=== PATIENT | female | born 1985 | race Caucasian/White ===

== ENCOUNTER 2019-02-18 15:45 | Emergency (ER) | payer OTHER ==
[2019-02-18 21:01] LABS: Urine Appearance Clear; Urine Bilirubin Negative (Negative); Urine Blood Negative (Negative); Urine Color Yellow; Urine Glucose Negative (Negative); Urine Ketones 1+ (Negative); Urine Nitrite Negative (Negative); Urine Protein Negative (Negative); Urine Specific Gravity 1.021 (1.010-1.030); Urine Urobilinogen Negative (Negative)
--- NOTE | 2019-02-18 21:05 | ED ---
Back Pain - HPI Summary HPI Summary: 33-year-old female presents with back pain for the past 6 months. She states over the past week she's had increasing back pain. She has chronic pain and numbness and tingling down left leg occasionally. She denies any urinary symptoms. No saddle anesthesia. No loss of bowel or bladder. Does not use IV drugs. She's been having fevers and chills for past 4 days. She also had a cough for past couple weeks and it is sometimes productive. No sinus congestion. No chest pain or shortness of breath. She states the pain radiates to her flanks. She states it feels like her back is swollen. she is able to ambulate. States she does not want anything for pain. has a provider that has been following up about her back. She has an MRI scheduled for next week. Just had an MRI a month ago. - History of Current Complaint Chief Complaint: EDBackInjuryPain Stated Complaint: BACK PAIN/FLANKPAIN/ACHE IN LEGS/CHILLS/ PER PT Time Seen by Provider: 02/18/19 20:32 Hx Last Menstrual Period: BEGINNING DECEMBER Pain Intensity: 9 - Allergies/Home Medications Allergies/Adverse Reactions: Allergies Allergy/AdvReac Type Severity Reaction Status Date / Time No Known Allergies Allergy Verified 02/18/19 15:54 Home Medications: Home Medications Ibuprofen [Advil] 600 mg PO TID PRN 02/18/19 [History Confirmed 02/18/19] PMH/Surg Hx/FS Hx/Imm Hx Endocrine/Hematology History: Denies: Hx Diabetes, Hx Thyroid Disease Cardiovascular History: Denies: Hx Hypertension Respiratory History: Denies: Hx Asthma, Hx Chronic Obstructive Pulmonary Disease (COPD) GI History: Denies: Hx Ulcer Infectious Disease History: No Infectious Disease History: Denies: Hx Clostridium Difficile, Hx Hepatitis, Hx Human Immunodeficiency Virus (HIV), Hx of Known/Suspected MRSA, Hx Shingles, Hx Tuberculosis, Hx Known/ Suspected VRE, Hx Known/Suspected VRSA, History Other Infectious Disease, Traveled Outside the [place] in Last 30 Days - Family History Known Family History: Positive: None, Unknown - Social History Alcohol Use: Occasionally Substance Use Type: Reports: None Smoking Status (MU): Light Every Day Tobacco Smoker Type: Cigarettes Amount Used/How Often: 1/2 PPD Length of Time of Smoking/Using Tobacco: 20 years Have You Smoked in the Last Year: Yes Review of Systems Negative: Fever Negative: Chest Pain Positive: Cough. Negative: Shortness Of Breath Positive: flank pain. Negative: dysuria Positive: Myalgia - back pain All Other Systems Reviewed And Are Negative: Yes Physical Exam Triage Information Reviewed: Yes Vital Signs On Initial Exam: Initial Vitals Temp Pulse Resp BP Pulse Ox 98.1 F 82 14 129/93 98 02/18/19 15:54 02/18/19 15:54 02/18/19 15:54 02/18/19 15:54 02/18/19 15:54 Vital Signs Reviewed: Yes Appearance: Positive: Well-Appearing Skin: Positive: Warm, Dry Head/Face: Positive: Normal Head/Face Inspection Eyes: Positive: Normal, Conjunctiva Clear ENT: Positive: Pharynx normal Respiratory/Lung Sounds: Positive: Clear to Auscultation, Breath Sounds Present Cardiovascular: Positive: Normal, RRR Abdomen Description: Positive: Nontender, Soft, CVA Tenderness (R), CVA Tenderness (L) Bowel Sounds: Positive: Present Musculoskeletal: Positive: Strength/ROM Intact - back, Other - tenderness lower back, pos SLR left, sensation grossly intact Neurological: Positive: Normal, Reflexes Intact - patella, Normal Gait Psychiatric: Positive: Normal Diagnostics - Vital Signs Vital Signs Temp Pulse Resp BP Pulse Ox 02/18/19 20:05 100.0 F 92 16 116/88 98 02/18/19 17:53 98.5 F 97 14 120/98 99 02/18/19 15:54 98.1 F 82 14 129/93 98 - Laboratory Lab Results: Lab Results 02/18/19 Range/Units 20:48 Urine Color Yellow Urine Appearance Clear Urine pH 5.0 (5-9) Ur Specific [place] 1.021 (1.010-1.030) Urine Protein Negative (Negative) Urine Ketones 1+ A (Negative) Urine Blood Negative (Negative) Urine Nitrate Negative (Negative) Urine Bilirubin Negative (Negative) Urine Urobilinogen Negative (Negative) Ur Leukocyte Esterase Negative (Negative) Urine Glucose Negative (Negative) Result Diagrams: 02/18/19 21:02 02/18/19 21:02 Lab Statement: Any lab studies that have been ordered have been reviewed, and results considered in the medical decision making process. - CT abd CT Interpretation Completed By: Radiologist Summary of CT Findings: IMPRESSION: 1. Nonobstructing bilateral renal calculi. 2. Large retrocecal appendix measuring 10 mm with no surrounding induration and. is likely a normal variant. 3. Mild free fluid in the cul-de-sac with a Hounsfield measurement of 20 which. is greater than expected for physiologic origin. This is confluent with the. right ovary which may reflect a leaking cyst. Pelvic ultrasound may be of. benefit for further evaluation. 4. Otherwise negative CT abdomen/pelvis. No ureteral calculi are evident and. there is no evidence of obstructive uropathy. Back Pain Course/Dx - Course Course Of Treatment: 33-year-old female presents with back pain for the past 6 months. She states over the past week she's had increasing back pain. She has chronic pain and numbness and tingling down left leg occasionally. She denies any urinary symptoms. No saddle anesthesia. No loss of bowel or bladder. Does not use IV drugs. She's been having fevers and chills for past 4 days. She also had a cough. No sinus congestion. No chest pain or shortness of breath. She states the pain radiates to her flanks. She states it feels like her back is swollen. she is able to ambulate. States she does not want anything for pain. has a provider that has been following up about her back. She has an MRI scheduled for next week. Just had an MRI a month ago. on exam lungs CTA. tenderness lower back and flank. pos SLR left. neurovascular intact. ambulates with steady gait. refusing anything for pain. chest xray read by me as normal. urine no infection. wbc normal. crp slightly elevated. abd ct shows nonobstructing renal caculi. mild free fluid in pelvis. nontender in this area so will have follow up with obstetrics/gynecology nurse. lumbar ct shows no acute findings. patient states will continue ibuprofen for pain. no risk factors or symptoms of epidural abscess. told follow up with primary. patient understand and agrees with plan. - Diagnoses Differential Diagnosis/HQI/PQRI: Positive: Herniated Disc, Other - uti, pyelo Provider Diagnoses: Back pain, Flank pain, Cough Discharge - Sign-Out/Discharge Documenting (check all that apply): Patient Departure Patient Received Moderate/Deep Sedation with Procedure: No - Discharge Plan Condition: Good Disposition: HOME Patient Education Materials: Back Pain (ED) Referrals: No Primary Care Phys,NOPCP [Primary Care Provider] - Additional Instructions: Use ibuprofen or Tylenol for pain every 6 hours ice/heat area, move as much as possible Follow up with primary within 5 days Return to ED if develop any new or worsening symptoms - Billing Disposition and Condition Condition: GOOD Disposition: Home
[2019-02-18 21:14] LABS: ABS Basophils 0 10^3/ul (0-0.2); ABS Eosinophils 0.1 10^3/ul (0-0.6); ABS Lymphocytes 1.5 10^3/ul (1.0-4.8); ABS Monocytes 0.3 10^3/ul (0-0.8); ABS Neutrophils 2.4 10^3/ul (1.5-7.7); ABS Nucleated RBC 0 10^3/ul; Eosinophil % 1.3 %; Hematocrit 47 % (33-41); Hemoglobin 16.1 g/dL (12.0-16.0); Lymphocyte % 35.4 %; Mean Corpuscular HGB Conc 34 g/dL (31-36); Mean Corpuscular Hemoglobin 32 pg (27-31); Mean Corpuscular Volume 93 fL (80-97); Mean Platelet Volume 8.2 fL (7.4-10.4); Nucleated Red Blood Cells % 0.2; Platelet Count 152 10^3/uL (150-450); Red Blood Count 5.02 10^6 /uL (3.70-4.87); Red Cell Distribution Width 13 % (10.5-15); White Blood Count 4.4 10^3/uL (3.5-10.8)
[2019-02-18 21:31] LABS: ALT 29 U/L (7-52); AST 27 U/L (13-39); Albumin 4.5 g/dL (3.2-5.2); Albumin/Globulin Ratio 1.6 (1-3); Alkaline Phosphatase 61 U/L (34-104); Anion Gap 7 mmol/L (2-11); BUN/Creatinine Ratio 15.4 (8-20); Blood Urea Nitrogen 12 mg/dL (6-24); C Reactive Protein 12.62 mg/L (<8.01); CO2 Carbon Dioxide 23 mmol/L (22-32); Calcium 9.2 mg/dL (8.6-10.3); Chloride 106 mmol/L (101-111); EGFR African American 103.6 (>60); EGFR Non-African American 85.6 (>60); Globulin 2.9 g/dL (2-4); Glucose 85 mg/dL (70-100); Sodium 136 mmol/L (135-145); Total Protein 7.4 g/dL (6.4-8.9)
[2019-02-18 21:37] LABS: HCG Pregnancy < 0.60 mIU/mL
[2019-02-18 22:41] VITALS: BP 111/73
== END 2019-02-18 22:40 | disposition home or self-care (01) ==
LOC: ED 15:45
DX: M54.9 Dorsalgia, unspecified (principal); R10.9 Unspecified abdominal pain; N20.0 Calculus of kidney; R05 Cough; F17.210 Nicotine dependence, cigarettes, uncomplicated
CPT/HCPCS: 36415; 71046; 72131; 74176; 80053; 81003; 84702; 85025; 86140; 99282

== ENCOUNTER 2019-10-23 23:30 | Emergency (ER) | payer SELFPAY ==
[2019-10-23] MEDS ORDERED: Ketorolac INJ* 30 MG/ML 1 ML VIAL IM ONE (23:53)
--- NOTE | 2019-10-23 23:58 | ED ---
Lower Extremity - HPI Summary HPI Summary: 34 year old female presents with right knee pain today. She states she slipped on some ice and twisted her knee and it fell underneath her. She has pain over lateral aspect of the knee. No numbness or tingling. States pain does radiate up her leg and onto her cordova. Denies any ankle pain. Denies any head pain. No head injury. No LOC. no previous fracture to the area. Hasn't taking anything for pain. Has no medical conditions. she cleans buildings for work. - History of Current Complaint Chief Complaint: EDExtremityLower Stated Complaint: FALL PER PT Time Seen by Provider: 10/23/19 23:46 Hx Last Menstrual Period: BEGINNING DECEMBER Pain Intensity: 10 - Allergies/Home Medications Allergies/Adverse Reactions: Allergies Allergy/AdvReac Type Severity Reaction Status Date / Time No Known Allergies Allergy Verified 10/23/19 23:33 PMH/Surg Hx/FS Hx/Imm Hx Endocrine/Hematology History: Denies: Hx Diabetes, Hx Thyroid Disease Cardiovascular History: Denies: Hx Hypertension Respiratory History: Denies: Hx Asthma, Hx Chronic Obstructive Pulmonary Disease (COPD) GI History: Denies: Hx Ulcer Infectious Disease History: No Infectious Disease History: Denies: Hx Clostridium Difficile, Hx Hepatitis, Hx Human Immunodeficiency Virus (HIV), Hx of Known/Suspected MRSA, Hx Shingles, Hx Tuberculosis, Hx Known/ Suspected VRE, Hx Known/Suspected VRSA, History Other Infectious Disease, Traveled Outside the [place] in Last 30 Days - Family History Known Family History: Positive: None, Unknown - Social History Alcohol Use: Occasionally Substance Use Type: Reports: None Smoking Status (MU): Light Every Day Tobacco Smoker Type: Cigarettes Amount Used/How Often: 1/2 PPD Length of Time of Smoking/Using Tobacco: 20 years Have You Smoked in the Last Year: Yes Review of Systems Negative: Fever Negative: Chest Pain Negative: Shortness Of Breath Positive: Myalgia - right knee pain All Other Systems Reviewed And Are Negative: Yes Physical Exam Triage Information Reviewed: Yes Vital Signs On Initial Exam: Initial Vitals Temp Pulse Resp BP Pulse Ox 98.3 F 82 15 139/86 99 10/23/19 23:31 10/23/19 23:31 10/23/19 23:31 10/23/19 23:31 10/23/19 23:31 Vital Signs Reviewed: Yes Appearance: Positive: Well-Appearing Skin: Positive: Warm, Dry Head/Face: Positive: Normal Head/Face Inspection Eyes: Positive: Normal, Conjunctiva Clear ENT: Positive: Pharynx normal Respiratory/Lung Sounds: Positive: Clear to Auscultation, Breath Sounds Present Cardiovascular: Positive: Normal, RRR Musculoskeletal: Positive: Limited @ - right knee, Other - tenderness over lateral aspect of right knee, good pulses, nontender patella, no laxity noted Neurological: Positive: Normal Psychiatric: Positive: Normal Procedures - Sedation Patient Received Moderate/Deep Sedation with Procedure: No Diagnostics - Vital Signs Vital Signs Temp Pulse Resp BP Pulse Ox 10/23/19 23:31 98.3 F 82 15 139/86 99 - Laboratory Lab Statement: Any lab studies that have been ordered have been reviewed, and results considered in the medical decision making process. - Radiology knee Radiology Interpretation Completed By: ED Physician Summary of Radiographic Findings: no fracture Lower Extremity Course/Dx - Course Course Of Treatment: 34 year old female presents with right knee pain today. She states she slipped on some ice and twisted her knee and it fell underneath her. She has pain over lateral aspect of the knee. No numbness or tingling. States pain does radiate up her leg and onto her cordova. Denies any ankle pain. Denies any head pain. No head injury. No LOC. no previous fracture to the area. Hasn't taking anything for pain. Has no medical conditions. On exam tenderness over lateral aspect of right knee. Neurovascular intact. No edema noted. X-ray shows no fracture. gave knee immobilizer and crutches. Will follow-up with orthopedic. Patient understands and agrees the plan. - Diagnoses Differential Diagnosis/HQI/PQRI: Positive: Contusion, Fracture (Closed), Sprain Provider Diagnoses: Right knee pain Discharge ED - Sign-Out/Discharge Documenting (check all that apply): Patient Departure - Discharge Plan Condition: Good Disposition: HOME Patient Education Materials: Knee Pain (ED) Forms: *Work Release Referrals: Niki Carroll MD [Medical Doctor] - Additional Instructions: Use immobilizer Stay off knee as much as possible Ice, elevate, Ibuprofen or Tylenol every 6 hours for pain Follow up with ortho if no improvement Return to ED if develop or any new or worsening symptoms - Billing Disposition and Condition Condition: GOOD Disposition: Home - Attestation Statements Provider Attestation: I was available for consultation for this patient. I did not evaluate the patient or participate in any medical decision making or disposition decisions unless I am specifically named in the chart as having consulted on the patient. If I have consulted on the patient, please see my own ED note on the patient encounter. Iraida Ambrose MD
[2019-10-24 00:38] VITALS: BP 0/0
== END 2019-10-24 00:37 | disposition home or self-care (01) ==
LOC: ED 23:30
DX: M25.561 Pain in right knee (principal); F17.210 Nicotine dependence, cigarettes, uncomplicated; W18.49XA Other slipping, tripping and stumbling without falling, initial encounter; Y92.9 Unspecified place or not applicable
CPT/HCPCS: 96372; 99282; J1885

== ENCOUNTER 2023-10-03 07:36 | Inpatient (IN) ==
[2023-10-03] MEDS ORDERED: Nalbuphine 10 MG/ML 1 ML VIAL IV PRN (07:56)
[2023-10-03] MEDS ORDERED: Promethazine INJ(RESTRICTED) 25 MG/ML 1 ml VIAL IV PRN (07:56)
[2023-10-03] MEDS ORDERED: Buffered Lidocaine 1% SYRIN 1 ml INTRADERM ONE ×2 (07:56→09:20)
[2023-10-03] MEDS ORDERED: Lidocaine 1% VIAL 10 MG/ML 30 ML VIAL INJ PRN (09:20)
[2023-10-03] MEDS ORDERED: Lactated Ringers 1000 ml BAG 1,000 ML IV ONE ×2 (09:20→10:30)
[2023-10-03 09:43] LABS: ABS Basophils 0.1 10^3/uL (0.0-0.1); ABS Eosinophils 0.1 10^3/uL (0.0-0.5); ABS Lymphocytes 1.9 10^3/uL (1.0-4.8); ABS Monocytes 0.3 10^3/uL (0.0-0.9); ABS Neutrophils 6.4 10^3/uL (1.5-7.6); ABS Nucleated RBC 0.01 10^3/ul; Eosinophil % 0.7 %; Hematocrit 35.6 % (35-45); Hemoglobin 12.5 g/dL (11.5-14.3); Lymphocyte % 21.9 %; Mean Corpuscular Hemoglobin 33.4 pg (27-33); Mean Corpuscular Hgb Conc 35.1 g/dL (31-36); Mean Corpuscular Volume 95.1 fL (80-97); Mean Platelet Volume 9.1 fL (7.5-11.2); Nucleated Red Blood Cells % 0.1 %/100WBC (0.0-0.8); Platelet Count 275 10^3/uL (150-450); Red Blood Count 3.74 10^6/uL (3.63-4.92); Red Cell Distribution Width 13.2 % (12-17); White Blood Count 8.7 10^3/uL (3.8-11.8)
[2023-10-03] MEDS ORDERED: fentaNYL 100 mcg/2 ml 50 MCG/ML VIAL ONE (09:45)
[2023-10-03] MEDS ORDERED: OBEPIDURAL (200 ML) 200 ML EPIDURAL ONE (09:48)
[2023-10-03] MEDS ORDERED: Lidocaine 1.5% EPI 1:200,000 30 ML SDV ONE (09:48)
[2023-10-03] MEDS ORDERED: Lactated Ringers 1000 ml BAG 1,000 ML IV SCH ×3 (10:00→13:00)
[2023-10-03] MEDS ORDERED: Sodium Citrate/Citric Acid LIQ 15 ML UDC PO PRN (10:30)
[2023-10-03] MEDS ORDERED: Phenylephrine 40 mcg/mL 10mL (400mcg) SYRINGE IV PUSH PRN ×2 (10:30)
[2023-10-03 10:46] LABS: Urine Benzodiazepine Screen None Detected (None Detect); Urine Cannabinoids Screen None Detected (None Detect); Urine Opiates Screen None Detected (None Detect)
[2023-10-03] MEDS ORDERED: Oxytocin in LR 20,000 MILLI.UNIT/1,000 ML BAG IV ONE (10:55)
[2023-10-03] MEDS ORDERED: OBEPIDURAL (200 ML) 200 ML EPIDURAL SCH (11:00)
[2023-10-03 11:58] LABS: Urine Appearance Clear; Urine Bilirubin Negative (Negative); Urine Blood Negative (Negative); Urine Color Colorless; Urine Glucose Negative (Negative); Urine Ketones Negative (Negative); Urine Nitrite Negative (Negative); Urine Protein Negative (Negative); Urine Specific Gravity 1.002 (1.002-1.030); Urine Urobilinogen Negative (Negative)
[2023-10-03] MEDS ORDERED: Dibucaine 1% OINT 28.35 GM TUBE PR PRN (12:05)
[2023-10-03] MEDS ORDERED: Witch Hazel PAD JAR TOPICAL PRN (12:05)
[2023-10-03] MEDS ORDERED: Glycerin ADULT 2.4 gm SUPP PR PRN (12:05)
[2023-10-03] MEDS ORDERED: Oxytocin in LR 20,000 MILLI.UNIT/1,000 ML BAG IV SCH (12:05)
[2023-10-03] MEDS ORDERED: Tetan/Diph/Pertus SYR(Tdap) 0.5 ML SYR(BOOSTRIX) use SYR contains LATEX IM ONE (12:14)
[2023-10-03] MEDS ORDERED: Varicella Virus Vaccine Live 0.5 ML VIAL SUBCUT ONE (12:14)
[2023-10-04 07:42] LABS: ABS Basophils 0.1 10^3/uL (0.0-0.1); ABS Eosinophils 0.1 10^3/uL (0.0-0.5); ABS Lymphocytes 1.9 10^3/uL (1.0-4.8); ABS Monocytes 0.5 10^3/uL (0.0-0.9); ABS Neutrophils 8.9 10^3/uL (1.5-7.6); ABS Nucleated RBC 0.01 10^3/ul; Eosinophil % 0.6 %; Hematocrit 32.5 % (35-45); Hemoglobin 11.3 g/dL (11.5-14.3); Lymphocyte % 16.7 %; Mean Corpuscular Hgb Conc 34.7 g/dL (31-36); Mean Platelet Volume 9.2 fL (7.5-11.2); Nucleated Red Blood Cells % 0.1 %/100WBC (0.0-0.8); Platelet Count 229 10^3/uL (150-450); Red Blood Count 3.42 10^6/uL (3.63-4.92); Red Cell Distribution Width 13.1 % (12-17); White Blood Count 11.4 10^3/uL (3.8-11.8)
[2023-10-04 08:47] VITALS: BP 118/68
[2023-10-04] MEDS ORDERED: Influenza vaccine *QUAD* *2023-24* 0.5 ML SYRINGE IM ONE (09:00)
== END 2023-10-04 14:51 | disposition home or self-care (01) | DRG 560 ==
LOC: MCHOBOUT 07:36 → MCHOB 08:52
PROVIDERS: ADMIT Obstetrics & Gynecology; ATTEND Obstetrics & Gynecology